=== PATIENT | male | born 1945 | race Caucasian/White ===

== ENCOUNTER 2020-08-24 14:31 | Outpatient (CLI) | payer MEDICARE, BC ==
[2020-08-24 16:06] LABS: Anion Gap 15 mmol/L (10-20); BUN (Urea Nitrogen) 21 mg/dL (8.4-25.7); Calc. Creatinine Clearance 0 mL/min (70-130); Calcium 9.6 mg/dL (7.8-10.44); Carbon Dioxide 23 mmol/L (23-31); Chloride 108 mmol/L (98-107); Glucose 98 mg/dL (83-110); Potassium 4.4 mmol/L (3.5-5.1); Sodium 142 mmol/L (136-145)
[2020-08-24 16:42] LABS: #Basophils 0.1 10x3/uL (0.0-0.2); #Eosinphils 0.3 10x3/uL (0.0-0.5); #Monocytes 0.6 10x3/uL (0.0-1.1); #Neutrophils 4.5 10x3/uL (1.5-8.4); %Basophils 0.7 % (0.0-2.0); %Eosinophils 3.2 % (0.0-6.0); %Lymphocytes 33.2 % (18.0-47.0); %Monocytes 7.3 % (0.0-10.0); %Neutrophils 55.4 % (40.0-75.0); Mean Corpuscular HGB CONC 33.6 g/dL (32.0-36.0); Mean Corpuscular Hemoglobin 29.7 pg (27.0-33.0); Mean Corpuscular Volume 88.6 fl (81.2-95.1); Mean Platelet Volume 9.9 fl (7.4-10.4); Platelet Count 310 10x3/uL (150-450); RBC Distribution Width 12.7 % (11.5-14.5); Red Blood Cell (RBC) Count 4.37 10x6/uL (4.32-5.72); White Blood Cell (WBC) Count 8.2 10x3/uL (3.5-10.5)
[2020-08-25 01:47] LABS: SARS-CoV-2 PCR by NAA Not Detected (NotDetected)
== END 2020-08-24 14:32 | disposition home or self-care (01) ==
LOC: LABBT 14:31
PROVIDERS: ATTEND Orthopaedic Surgery
DX: Z01.818 Encounter for other preprocedural examination (principal); M17.11 Unilateral primary osteoarthritis, right knee; Z20.822 Contact with and (suspected) exposure to COVID-19
CPT/HCPCS: 80048; 85025; 85610; 87081; 93005; U0003; U0005; 87635; 93010

== ENCOUNTER 2020-08-29 06:13 | Inpatient (IN) | payer MEDICARE, BC ==
[2020-08-29] MEDS ORDERED: Tranexamic Acid 1,000 MG/10 ML VIAL ONE (07:29)
[2020-08-29] MEDS ORDERED: Sodium Chloride 0.9% 100 ML ONE (07:30)
[2020-08-29] MEDS ORDERED: Vancomycin 1.5 GRAM/300 ML BAG 1.5 GM in Premix Bag 1 BAG IVPB SCH (07:45)
[2020-08-29] MEDS ORDERED: Midazolam HCl 2 mg/2 ml Vial ONE (08:09)
[2020-08-29] MEDS ORDERED: Fentanyl 100 MCG/2 ML VIAL ONE ×3 (08:10→12:01)
[2020-08-29] MEDS ORDERED: traMADol HCl 50 MG TAB PO PRN ×3 (09:07→09:15)
[2020-08-29] MEDS ORDERED: Ondansetron PF 4 MG/2 ML Vial IVP PRN ×2 (09:07→09:15)
[2020-08-29] MEDS ORDERED: HYDROcodone/Acetaminophen 10/325 mg Tablet PO PRN ×2 (09:07)
[2020-08-29] MEDS ORDERED: Zolpidem Tartrate 5 MG TAB PO PRN ×2 (09:07→09:15)
[2020-08-29] MEDS ORDERED: Acetaminophen 325 MG TAB PO PRN (09:07)
[2020-08-29] MEDS ORDERED: diphenhydrAMINE 25 MG CAP PO PRN (09:07)
[2020-08-29] MEDS ORDERED: Promethazine HCl 25 MG/ML VIAL IM PRN ×3 (09:07→09:42)
[2020-08-29] MEDS ORDERED: Fentanyl 100 MCG/2 ML VIAL IV PRN (09:10)
[2020-08-29] MEDS ORDERED: Ropivacaine HCl/PF 250 ML in Premix Bag 1 BAG NERVE BLCK SCH (09:15)
[2020-08-29] MEDS ORDERED: Non-Formulary Item 1 EACH (Sildenafil Citrate [Sildenafil Citrate] 50 MG Tablet) PO PRN (09:15)
[2020-08-29] MEDS ORDERED: Labetalol HCl 100 MG/20 ML VIAL ONE (09:18)
[2020-08-29] MEDS ORDERED: Ondansetron PF 4 MG/2 ML Vial ONE (09:18)
[2020-08-29] MEDS ORDERED: PROPOFOL 200 MG/20 ML VIAL ONE (09:18)
[2020-08-29] MEDS ORDERED: Bupivacaine HCl 0.5%/Epinephrine 1:200,000/PF 30 ml Vial ONE (09:18)
[2020-08-29] MEDS ORDERED: Dexamethasone 20 MG/5 ML VIAL ONE (09:18)
[2020-08-29] MEDS ORDERED: Ropivacaine 2% HCl/PF (20 MG/10 ML VIAL) ONE (09:18)
[2020-08-29] MEDS ORDERED: Promethazine HCl 25 MG/ML VIAL SLOW IVP PRN (09:42)
[2020-08-29] MEDS ORDERED: Ondansetron HCl/PF 4 MG/2 ML Vial IVP PRN (09:42)
[2020-08-29] MEDS: Ketorolac Tromethamine 30 MG/ML VIAL IVP SCH ×3 (12:10→23:56)
[2020-08-29] MEDS ORDERED: Ketorolac Tromethamine 30 MG/ML VIAL IVP SCH (14:00)
[2020-08-29] MEDS ORDERED: Ketorolac Tromethamine 30 MG/ML VIAL ONE (16:34)
[2020-08-29] MEDS: CEFAZOLIN 2 GM in Premix Bag 1 BAG IVPB SCH ×2 (16:59→23:56)
[2020-08-29] MEDS: HYDROcodone/Acetaminophen 10/325 mg Tablet PO PRN ×2 (19:54→23:59)
[2020-08-29] MEDS: Aspirin 81 mg Enteric Coated Tablet PO SCH (19:55)
[2020-08-29] MEDS: Sodium Chloride 0.9% 1,000 ML IV SCH ×2 (20:22)
[2020-08-29 21:45] VITALS: BMI 38.7
[2020-08-30] MEDS: HYDROcodone/Acetaminophen 10/325 mg Tablet PO PRN ×3 (03:58→17:07)
[2020-08-30] MEDS: Ketorolac Tromethamine 30 MG/ML VIAL IVP SCH ×3 (05:47→17:06)
[2020-08-30] MEDS: Sodium Chloride 0.9% 1,000 ML IV SCH ×2 (05:47→14:22)
[2020-08-30 06:08] LABS: Hemoglobin 10.6 g/dL (14.0-18.0); Mean Corpuscular HGB CONC 33.2 g/dL (32.0-36.0); Mean Corpuscular Hemoglobin 29.6 pg (27.0-31.0); Mean Corpuscular Volume 89.4 fL (78.0-98.0); Mean Platelet Volume 6.9 fL (7.4-10.4); Platelet Count 224 thou/uL (130-400); RBC Distribution Width 11.6 % (11.5-14.5); Red Blood Cell (RBC) Count 3.58 mill/uL (4.70-6.10); White Blood Cell (WBC) Count 11.9 thou/uL (4.8-10.8)
[2020-08-30] MEDS: Multivitamin W/ Minerals 1 TAB PO SCH (08:52)
[2020-08-30] MEDS: Atorvastatin Calcium 20 MG TAB PO SCH (08:52)
[2020-08-30] MEDS: Lisinopril 10 MG TAB PO SCH (08:52)
[2020-08-30] MEDS: Senokot S 8.6-50 MG TAB PO SCH ×2 (08:52→20:03)
[2020-08-30] MEDS: Aspirin 81 mg Enteric Coated Tablet PO SCH ×2 (08:52→20:03)
[2020-08-30] MEDS: Ferrous Gluconate 324 MG TAB PO SCH ×2 (08:52→17:07)
[2020-08-30] MEDS: Fenofibrate Nanocrystallized 145 MG TAB PO SCH (09:35)
[2020-08-31] MEDS: Ketorolac Tromethamine 30 MG/ML VIAL IVP SCH ×2 (00:06→05:29)
[2020-08-31] MEDS: Sodium Chloride 0.9% 1,000 ML IV SCH ×2 (01:53→10:22)
[2020-08-31 06:56] LABS: Mean Corpuscular HGB CONC 34.6 g/dL (32.0-36.0); Mean Corpuscular Hemoglobin 31.3 pg (27.0-31.0); Mean Corpuscular Volume 90.5 fL (78.0-98.0); Mean Platelet Volume 7.2 fL (7.4-10.4); Platelet Count 187 thou/uL (130-400); RBC Distribution Width 11.8 % (11.5-14.5); Red Blood Cell (RBC) Count 3.18 mill/uL (4.70-6.10); White Blood Cell (WBC) Count 8.5 thou/uL (4.8-10.8)
[2020-08-31] MEDS: Multivitamin W/ Minerals 1 TAB PO SCH (08:09)
[2020-08-31] MEDS: Aspirin 81 mg Enteric Coated Tablet PO SCH (08:09)
[2020-08-31] MEDS: Lisinopril 10 MG TAB PO SCH (08:09)
[2020-08-31] MEDS: Ferrous Gluconate 324 MG TAB PO SCH (08:09)
[2020-08-31] MEDS: Atorvastatin Calcium 20 MG TAB PO SCH (08:09)
[2020-08-31] MEDS: Senokot S 8.6-50 MG TAB PO SCH (08:09)
[2020-08-31] MEDS: HYDROcodone/Acetaminophen 10/325 mg Tablet PO PRN ×2 (08:10→12:13)
[2020-08-31] MEDS: Fenofibrate Nanocrystallized 145 MG TAB PO SCH (08:19)
[2020-08-31 11:44] VITALS: BP 116/64; TEMP 98.1
== END 2020-08-31 15:22 | disposition home or self-care (01) | DRG 470 ==
LOC: SDC 06:13 → SURG A 09:08
PROVIDERS: ADMIT Orthopaedic Surgery; ATTEND Orthopaedic Surgery
PROC: 0SRC0J9 Replacement of Right Knee Joint with Synthetic Substitute, Cemented, Open Approach (ICD-10-PCS; principal; 2020-08-29)
PROC: 8E0YXBZ Computer Assisted Procedure of Lower Extremity (ICD-10-PCS; 2020-08-29)
DX: M17.11 Unilateral primary osteoarthritis, right knee (principal); Z20.822 Contact with and (suspected) exposure to COVID-19; E78.5 Hyperlipidemia, unspecified; I10 Essential (primary) hypertension; Z88.5 Allergy status to narcotic agent; Z79.899 Other long term (current) drug therapy
CPT/HCPCS: 36415; 85027; C1713; C1776; J0690; J1100; J1885; J2250; J2405; J2704; J2795; J3010; J3370; J3490